=== PATIENT | female | born 2005 | race Caucasian/White ===

== ENCOUNTER 2023-03-24 11:26 | Emergency (ER) | payer OTHER ==
[~2023-03-24] VITALS: Ht 160 cm; Wt 63.5 kg
[2023-03-24 11:33] VITALS: BP 125/84; PULSE 76; RESP 14; TEMP 98.2; O2SAT 98
[2023-03-24 11:35] VITALS: O2SAT 98
[2023-03-24] MEDS ORDERED: LIDOCAINE/EPI MPF 1%1:200000 30 ML VIAL INJ ONE (12:00)
[2023-03-24] MEDS ORDERED: BACITRACIN OINT 500 UNITS/GM PKT TP ONE (12:30)
== END 2023-03-24 13:43 | disposition home or self-care (01) ==
LOC: MED 11:26
DX: S01.01XA Laceration without foreign body of scalp, initial encounter (principal); W22.03XA Walked into furniture, initial encounter; Y93.89 Activity, other specified; Y92.89 Other specified places as the place of occurrence of the external cause; Y99.8 Other external cause status
CPT/HCPCS: 12001; 99283; J2001